=== PATIENT | female | born 1995 | race Caucasian/White ===

== ENCOUNTER 2016-08-09 09:15 | Emergency (ER) | payer SELFPAY ==
[2016-08-09] MEDS ORDERED: SODIUM CHLORIDE 0.9% 100 ML IV ONE (10:58)
[2016-08-09] MEDS ORDERED: CEFTRIAXONE 1 GM VIAL ONE (10:58)
== END 2016-08-09 17:20 | disposition home or self-care (01) ==
LOC: ER 09:15
CPT/HCPCS: 36415; 76817; 80053; 81001; 83690; 84702; 85025; 87077; 87088; 87186; 96365